=== PATIENT | female | born 1965 | race Caucasian/White ===

== ENCOUNTER → 2018-10-20 22:07 | Outpatient (CLI) | payer MEDICARE, OTHER, SELFPAY ==
[2018-10-20 22:29] LABS: Adenovirus F 40/41, stool Not Detected (NotDetected); Astrovirus Not Detected (NotDetected); Campylobacter Not Detected (NotDetected); Clostridium Difficile A/B, PCR Not Detected (NotDetected); Cryptosporidium Not Detected (NotDetected); Cyclospora Cayetanesis Not Detected (NotDetected); Entamoeba histolytica Not Detected (NotDetected); Enteroaggregative E coli Not Detected (NotDetected); Enteropathogenic E coli Not Detected (NotDetected); Enterotoxigenic E coli Not Detected (NotDetected); Giardia lamblia Not Detected (NotDetected); Norovirus Not Detected (NotDetected); Plesimonas Shigalloides, PCR Not Detected (NotDetected); Rotavirus A Not Detected (NotDetected); Salmonella, PCR Not Detected (NotDetected); Sapovirus Not Detected (NotDetected); Shiga-like toxin E coli Not Detected (NotDetected); Shigella Enterovasive E coli Not Detected (NotDetected); Vibrio Cholerae Not Detected (NotDetected); Vibrio, PCR Not Detected (NotDetected); Yersinia Entercolitica, PCR Not Detected (NotDetected)
== END ==
PROVIDERS: PCP Family Medicine; Visit Provider Family Medicine
DX: R19.7 Diarrhea, unspecified (principal)
CPT/HCPCS: 87506

== ENCOUNTER → 2019-03-24 12:31 | Outpatient (CLI) | payer MEDICARE, OTHER, SELFPAY ==
[2019-03-24 12:48] LABS: ABG Base Excess 4.7 mmol/L (-2.4-2.3); ABG HCO3 29.7 mmhg (22.0-26.0); ABG Oxygen Saturation 93 % (90-100); ABG PH 7.39 mmol/L (7.35-7.45); ABG TCO2 31.2 mmhg (23-27)
[2019-03-24 12:50] LABS: Allen's Test ACCEPTABLE; Oxygen ROOM AIR %; Source L. RADIAL
[2019-03-24 12:51] LABS: ABG PCO2 50.2 mmhg (35.0-45.0)
== END ==
PROVIDERS: PCP Family Medicine; Visit Provider Internal Medicine Pulmonary Disease
DX: R09.02 Hypoxemia (principal)
CPT/HCPCS: 82803

== ENCOUNTER 2019-10-01 11:52 | Emergency (ER) | payer MEDICARE, OTHER, SELFPAY ==
--- NOTE | 2019-10-01 11:33 | ECG_ITS ---
APPROVED REPORT Exam: Resting ECG HR:81 bpm ECG Measurements Heart Rate 81 AXES DE 114 P 33 QRSd 114 QRS -43 QT 448 T 234 QTc 520 <Conclusion> Normal sinus rhythm Left axis deviation Left ventricular hypertrophy with repolarization abnormality Prolonged QT Abnormal ECG Electronically signed by : Nelson Shafer, 10/02/2019 05:52:39
[2019-10-01 11:53] VITALS: BP 125/67; PULSE 73; RESP 28; TEMP 36.5; O2SAT 99; BMI 34.4
--- NOTE | 2019-10-01 11:54 | [facility].EDGENADL ---
ED Disposition Clinical Impression: Aortic valve disease, Chronic kidney disease with end stage renal failure on dialysis Chest pain Qualifiers: Chest pain type: precordial pain Qualified Code(s): R07.2 - Precordial pain Disposition: Xfer Short-Term Hosp Condition on Discharge: Fair Referrals: Provider,Referral, [Referring] - Forms: Transfer Record - ED - Critical Care Critical Care Time: No Attestation: On , the high probability of a clinically significant, sudden or life threatening deterioration of the following system(s) required my full and direct attention, intervention and personal management. The time I documented below is in addition to time spent performing reported procedures but includes the following listed in this critical care notation. Medical Decision Making - Medical Records Medical records reviewed: Yes: I reviewed the patient's medical records. - Theo Inquiry Pt receiving controlled substance: Yes Theo was queried for this patient: Yes Reference #:: [id number] Risks and benefits of using a controlled substance: were not discussed with pt by me Comment: 14 rxs. 10 oxycodone 5mg on 09/12/19 Vital Signs: 10/01/19 11:53 10/01/19 13:11 10/01/19 14:07 Temperature 97.7 F Temperature Source Oral Pulse Rate Pulse Rate [Left Radial] 73 91 H 85 Respiratory Rate 28 H 18 Blood Pressure Blood Pressure [Right Arm] 125/67 112/60 104/66 L Blood Pressure Mean [Right Arm] 86 77 78 Blood Pressure Source [Right Arm] Automatic Cuff Automatic Cuff Blood Pressure Position Blood Pressure Position [Right Arm] Sitting Sitting Supine 02 Sat by Pulse Oximetry 99 97 96 Oxygen Delivery Method Room Air Room Air Room Air 10/01/19 14:47 10/01/19 15:11 10/01/19 16:25 Temperature 98 F Temperature Source Oral Pulse Rate 78 Pulse Rate [Left Radial] 83 82 Respiratory Rate 18 Blood Pressure 105/68 L Blood Pressure [Right Arm] 101/56 L 107/55 L Blood Pressure Mean [Right Arm] 71 72 Blood Pressure Source [Right Arm] Automatic Cuff Automatic Cuff Blood Pressure Position Sitting Blood Pressure Position [Right Arm] Supine Sitting 02 Sat by Pulse Oximetry 94 L 94 L Oxygen Delivery Method Room Air Room Air Room Air - Lab Data Lab results reviewed: Yes: I reviewed the patient's lab results. Lab Results 10/01/19 12:40: WBC 5.0, RBC 4.25, Hgb 13.5, Hct 43.2, MCV 101.6 H, MCH 31.9 H, MCHC 31.4 L, RDW 15.1, Plt Count 205, MPV 9.0, Neut % (Auto) 64.4, Lymph % (Auto) 21.5, [place] % (Auto) 9.8 H, Eos % (Auto) 3.3, Baso % (Auto) 1.1, Neut # (Auto) 3.3, Lymph # (Auto) 1.1, [place] # (Auto) 0.5, Eos # (Auto) 0.2, Baso # (Auto) 0.1 10/01/19 12:40: Sodium 134 L, Potassium 4.1, Chloride 93 L, Carbon Dioxide 27, Anion Gap 18.1 H, BUN 21 H, Creatinine 4.70 H, Estimated Creat Clear 22, Estimated GFR 10 L*, Est GFR ( Amer) 12 L*, Glucose 254 H, Calcium 10.6 H, Total Bilirubin 0.8, Direct Bilirubin 0.6 H, Conjugated Bilirubin 0.0, Indirect Bilirubin 0.2, Unconjugated Bilirubin 0.2, AST 48 H, ALT 31, Alkaline Phosphatase 223 H, Troponin I 0.07 H, Total Protein 9.4 H, Albumin 5.2 H 10/01/19 15:15: Troponin I 0.07 H Result diagrams: 10/01/19 12:40 10/01/19 12:40 Orders (Tests/Meds): ED MEDICATIONS Discontinued Medications Generic Name Dose Route Start Last Admin Trade Name Freq PRN Reason Stop Dose Admin Aspirin 324 mg 10/01/19 12:15 10/01/19 13:09 Aspirin 81mg Chewable Tablet PO 10/01/19 12:16 324 mg ONCE ONE Administration Hydromorphone HCl 0.5 mg 10/01/19 13:46 10/01/19 13:54 Dilaudid 2mg/Ml Syringe IV 10/01/19 13:47 0.5 mg ONCE ONE Administration Ondansetron HCl 4 mg 10/01/19 13:46 10/01/19 13:54 Zofran 4mg/2ml Vial IV 10/01/19 13:47 4 mg ONCE ONE Administration - Radiology Data #1 Image(s): Chest Image Reviewed: Yes I reviewed the patient's radiology image, Yes I have reviewed radiologist's interpretation PROCEDURE: XR CHEST JESÚS
--- NOTE | 2019-10-01 11:59 | XR_ITS ---
PROCEDURE: XR CHEST PORTABLE CLINICAL HISTORY: cp Chest pain and weakness COMPARISON: [id number] XR chest portable from 07/15/2018 XR CHEST 2V from 05/21/2019 XR CHEST PORTABLE from 07/09/2019 FINDINGS: There is cardiomegaly without failure. Increased markings are present in the right lower lobe consistent with atelectasis or infiltrate. There is a vascular stent in the left axillary region degenerative changes of the shoulders and a screw in the left coronoid area. Coronary artery stent is also present. No acute bony abnormalities. IMPRESSION: Right lower lobe infiltrate Dictated by: Vernon Bower MD 10/01/2019 14:13 Electronically signed by Vernon Bower MD in [place] 10/01/2019 14:13
--- NOTE | 2019-10-01 12:06 | PC.NURSE ---
lab at bedside
[2019-10-01 12:47] LABS: Basophils # 0.1 K/mm3 (0-0.2); Basophils % 1.1 % (0.1-2.0); Eosinophils # 0.2 K/mm3 (0.0-0.4); Eosinophils % 3.3 % (0.1-12.0); Hematocrit 43.2 % (37.0-47.0); Hemoglobin 13.5 g/dL (12.2-16.2); Lymphocytes # 1.1 K/mm3 (0.7-4.5); Lymphocytes % 21.5 % (10-50); Mean Corpuscular HGB Conc 31.4 g/dL (31.8-35.4); Mean Corpuscular Hemoglobin 31.9 pg (27.0-31.2); Mean Corpuscular Volume 101.6 fl (81-99); Monocytes # 0.5 K/mm3 (0.1-1.0); Monocytes % 9.8 % (1.7-9.3); Neutrophils # 3.3 K/mm3 (1.8-7.8); Neutrophils % 64.4 % (37.0-80.0); Platelet Count 205 K/mm3 (142-424); Red Blood Count 4.25 M/mm3 (4.20-5.40); Red Cell Distribution Width 15.1 % (11.5-17.5)
[2019-10-01 12:50] LABS: Alanine Aminotransferase 31 U/L (12-78); Albumin Level 5.2 g/dl (3.5-5.0); Alkaline Phosphatase 223 U/L (38-126); Anion Gap 18.1 mEq/L (5-15); Bilirubin,Direct 0.6 mg/dl (0.0-0.4); Bilirubin,Indirect 0.2 mg/dL (0.0-0.9); Bilirubin,Total 0.8 mg/dl (0.2-1.3); Bilirubin,Unconjugated 0.2 mg/dL (0.0-1.1); Blood Urea Nitrogen 21 mg/dl (7-17); Calcium 10.6 mg/dl (8.4-10.2); Carbon Dioxide 27 mmol/L (22.0-30.0); Chloride 93 mmol/L (98-107); Creatinine Clearance Estimated 22 mL/min (50-200); Estimated Glomerular Filt Rate 10 ml/min (>60); GFR (African American) 12 ML/MIN (>60); Glucose 254 mg/dl (74-100); Sodium 134 mmol/L (136-145); Total Protein,Serum 9.4 g/dl (6.3-8.2)
[2019-10-01 12:55] LABS: Aspartate Amino Transferase 48 U/L (14-36); Potassium 4.1 mmoL/L (3.5-5.1)
[2019-10-01 13:02] LABS: Troponin I 0.07 ng/ml (0.00-0.034)
[2019-10-01 13:11] VITALS: BP 112/60; PULSE 91; RESP 18; O2SAT 97
--- NOTE | 2019-10-01 13:20 | PC.NURSE ---
paged [facility]
--- NOTE | 2019-10-01 13:38 | PC.NURSE ---
dr de leon returned call
--- NOTE | 2019-10-01 14:03 | PC.NURSE ---
[employer] [employer] speaking with [facility]
[2019-10-01 14:07] VITALS: BP 104/66; PULSE 85; O2SAT 96
--- NOTE | 2019-10-01 14:39 | PC.NURSE ---
[facility] aware of transfer. Due to high call volume they will be delayed on coming up for transport
--- NOTE | 2019-10-01 14:44 | PC.NURSE ---
report called to [facility].
[2019-10-01 14:47] VITALS: BP 101/56; PULSE 83; O2SAT 94
--- NOTE | 2019-10-01 15:03 | PC.NURSE ---
lab coming to draw repeat labs
[2019-10-01 15:11] VITALS: BP 107/55; PULSE 82; O2SAT 94
--- NOTE | 2019-10-01 15:11 | PC.NURSE ---
Lab at bedside doing repeat trop
[2019-10-01 16:04] LABS: Troponin I 0.07 ng/ml (0.00-0.034)
[2019-10-01 16:25] VITALS: BP 105/68; PULSE 78; RESP 18; TEMP 36.6; O2SAT 98
== END 2019-10-01 16:27 | disposition short-term general hospital (02) ==
PROVIDERS: Emergency Provider Emergency Medicine; PCP Family Medicine
DX: R07.2 Precordial pain (principal); I35.9 Nonrheumatic aortic valve disorder, unspecified; N18.6 End stage renal disease; Z95.5 Presence of coronary angioplasty implant and graft; Z88.5 Allergy status to narcotic agent; Z79.899 Other long term (current) drug therapy; Z90.09 Acquired absence of other part of head and neck
CPT/HCPCS: 36415; 71045; 80048; 80076; 84484; 85025; 93005; 96374; 96375; 99284; J2405

== ENCOUNTER 2020-01-15 17:00 | Outpatient (RCR) | payer MEDICARE, OTHER, SELFPAY | END 2020-01-15 18:00 | disposition home or self-care (01) | LOC: PT 17:00 | PROVIDERS: PCP Family Medicine | DX: M54.2 Cervicalgia (principal); M54.5 Low back pain; M25.532 Pain in left wrist; M25.531 Pain in right wrist; R53.1 Weakness | CPT/HCPCS: 97110; 97163 ==

== ENCOUNTER → 2020-03-09 13:08 | Outpatient (CLI) | payer MEDICARE, OTHER, SELFPAY | PROVIDERS: Visit Provider Specialist | DX: Z03.818 Encounter for observation for suspected exposure to other biological agents ruled out (principal) | CPT/HCPCS: U0003 ==

== ENCOUNTER → 2020-05-21 22:15 | Outpatient (CLI) | payer MEDICARE, OTHER, SELFPAY ==
--- NOTE | 2020-05-21 22:29 | XR_ITS ---
PROCEDURE: XR FOOT RT MIN 3V CLINICAL INDICATION: CELLULITIS OF RIGHT FOOT COMPARISON: No exams were available for comparison FINDINGS: Post bunionectomy changes are seen. There are 2 threaded screws at the bunionectomy site 1st metatarsal head. There is metallic bracket and screw proximal phalanx of the great toe. There are 2 small threaded screws in the metatarsal head and there is fusion of the PIP joint 2nd toe. There is mild diffuse soft tissue swelling of the forefoot. There is calcification of the posterior tibial artery, is the patient diabetic? IMPRESSION: Postsurgical changes as described Dictated by: Dr. Alex Vu MD 05/22/2020 10:04 Dr. Alex Vu MD in [place] 05/22/2020 10:04
== END ==
PROVIDERS: PCP Family Medicine; Visit Provider Family Medicine
DX: L03.115 Cellulitis of right lower limb (principal)
CPT/HCPCS: 73630

== ENCOUNTER 2020-05-22 16:02 | Emergency (ER) | payer MEDICARE, OTHER, SELFPAY ==
[2020-05-22 16:20] VITALS: BP 149/73; PULSE 78; RESP 20; TEMP 37; O2SAT 97; BMI 30.4
--- NOTE | 2020-05-22 16:28 | HMH.EDUTC ---
[facility] Disposition Clinical Impression: Exposure to COVID-19 virus Disposition: Home, Self-Care Condition on Discharge: Good Instructions: Preventing the Spread of Coronavirus Discharge Instructions Additional Instructions: Drink plenty of fluids. Take tylenol for pain or fever. Return if you begin to have difficulty breathing. Follow up with your regular doctor. GO TO THE ER FOR ANY WORSENING SYMPTOMS Referrals: Jyoti Seals [Primary Care Provider] - Time of Disposition: 16:51 Medical Decision Making - Medical Records Medical records reviewed: No: I reviewed the patient's medical records. - Theo Inquiry Pt receiving controlled substance: No Vital Signs: 05/22/20 16:20 05/22/20 16:41 Temperature 98.6 F 98.6 F Temperature Source Oral Pulse Rate 78 Pulse Rate [Right Brachial] 78 Respiratory Rate 20 20 Blood Pressure 149/73 H Blood Pressure [Right Arm] 149/73 H Blood Pressure Mean [Right Arm] 98 Blood Pressure Source [Right Arm] Automatic Cuff Blood Pressure Position [Right Arm] Sitting 02 Sat by Pulse Oximetry 97 Oxygen Delivery Method Room Air Orders (Tests/Meds): ORDERS Category Date Time Status Covid-19 Nasal PCR ([facility]) Routine Lab 05/22/20 16:30 Received [facility] HPI - General Stated complaint: COVID Test Time Seen by Provider: 05/22/20 16:28 - History of Present Illness Provider Complaint: She has a medical procedure scheduled for next Sunday. She needs to have a covid test today so she can be admitted to the hospital for her procedure next week. - Related Data Home Medications Medication Instructions Recorded Confirmed Duloxetine HCl 60 mg PO HS 09/24/17 07/09/19 Gabapentin [Gabapentin 100mg Cap] 100 mg PO BID 09/24/17 07/09/19 Loperamide HCl [Imodium 2 mg 2 mg PO NEEDED PRN 09/24/17 07/09/19 capsule] Ropinirole HCl 5 mg PO BID 09/24/17 07/09/19 Aspirin [Aspir 81] 81 mg PO DAILY 11/14/17 07/09/19 Clopidogrel Bisulfate [Plavix 75mg 75 mg PO DAILY 11/14/17 07/09/19 Tab] Isosorbide Mononitrate 10 mg PO DAILY 11/14/17 07/09/19 Amlodipine Besylate [Amlodipine 10 mg PO DAILY 01/11/18 07/09/19 10mg Tab] Atorvastatin Calcium [Atorvastatin 80 mg PO DAILY 01/11/18 07/09/19 80mg Tab] calcitrioL [Calcitriol] 0.5 mcg PO WEEKLY 01/11/18 07/09/19 L.acidoph,Paracasei, B.lactis 1 each PO DAILY 03/21/18 07/09/19 [Probiotic] Lipase/Protease/Amylase [Creon Dr 1 each PO DAILY 03/21/18 07/09/19 24,000 Units Capsule] Pantoprazole Sodium [Protonix 40mg 40 mg PO DAILY 03/21/18 07/09/19 tablet] Sevelamer HCl [Renagel] 800 mg PO QID 07/09/19 07/09/19 Allergies Allergy/AdvReac Type Severity Reaction Status Date / Time morphine Allergy Mild Rash Verified 03/21/18 19:47 propoxyphene Allergy Unknown I-HIVES Verified 11/14/17 23:25 [From DARVOCET-N 100] [facility] History - Hepatitis A Screen Attestation statement:: This patient has been screened for Hepatitis A risk factors. I have reviewed the patient's past medical history: Yes Medical History: Denies:: Cancer, Diabetes Mellitus Type 1, Diabetes Mellitus Type 2, MRSA Laterality Cases: Bilateral: Tonsillectomy Amputation: No Fractures: Yes (left wrist) - Social History Smoking Status: Never smoker Alcohol Intake: never Occupational Status: other Housing: apartment Household Members: other ROS Obtained: Yes All systems reviewed & no additional complaints - Constitutional Constitutional: Reports system reviewed and no additional complaints, except as docu - Eyes Eyes: Reports system reviewed and no additional complaints, except as docu - ENT Ears, Nose, Mouth, and Throat: Reports system reviewed and no additional complaints, except as docu - Cardiovascular Cardiovascular: Reports system reviewed and no additional complaints, except as docu - Respiratory Respiratory: Yes system reviewed and no additional complaints, except as docu - Gastrointestinal Gastroin
[2020-05-22 16:41] VITALS: BP 149/73; PULSE 78; RESP 20; TEMP 37; O2SAT 97
== END 2020-05-22 16:50 | disposition home or self-care (01) ==
PROVIDERS: Emergency Provider Nurse Practitioner Family; PCP Family Medicine
DX: Z20.828 Contact with and (suspected) exposure to other viral communicable diseases (principal)
CPT/HCPCS: 99202; G0463; U0003

== ENCOUNTER 2020-06-08 15:00 | Outpatient (RCR) | payer MEDICARE, OTHER, SELFPAY | END 2020-06-08 15:05 | disposition home or self-care (01) | LOC: PT 15:00 | PROVIDERS: PCP Family Medicine; Visit Provider Family Medicine | DX: R53.1 Weakness (principal) | CPT/HCPCS: 97110; 97113; 97163 ==

== ENCOUNTER → 2020-08-19 18:22 | Outpatient (CLI) | payer MEDICARE, OTHER, SELFPAY ==
[2020-08-19 19:38] LABS: Erythrocyte Sedimentation Rate 66 mm/hr (0-30)
[2020-08-19 20:08] LABS: Uric Acid 6.2 mg/dl (2.5-6.2)
[2020-08-19 20:13] LABS: C-Reactive Protein 3.9 mg/L (0-4)
[2020-08-21 19:13] LABS: RA Latex Turbid. 14.1 IU/mL (0.0-13.9)
[2020-08-23 23:56] LABS: Anti-Cyclic Citrullinated Pept 10 units (0-19)
[2020-08-24 13:14] LABS: Antinuclear Antibodies, IFA Negative (.)
== END ==
PROVIDERS: Visit Provider Orthopaedic Surgery Hand Surgery
DX: R27.9 Unspecified lack of coordination (principal)
CPT/HCPCS: 36415; 84550; 85651; 86038; 86140; 86200; 86431

== ENCOUNTER 2020-09-07 13:00 | Outpatient (RCR) | payer MEDICARE, OTHER, SELFPAY | END 2020-09-07 13:05 | disposition home or self-care (01) | LOC: PT 13:00 | PROVIDERS: PCP Family Medicine; Visit Provider Family Medicine | DX: R53.1 Weakness (principal) | CPT/HCPCS: 97163 ==

== ENCOUNTER 2020-10-02 18:52 | Emergency (ER) | payer MEDICARE, OTHER, SELFPAY ==
[2020-10-02 19:37] VITALS: BP 132/62; PULSE 68; RESP 18; TEMP 36.8; O2SAT 98; BMI 32.6
--- NOTE | 2020-10-02 19:39 | HMH.EDUTC ---
[facility] Disposition Clinical Impression: Encounter for laboratory testing for COVID-19 virus Disposition: Home, Self-Care Condition on Discharge: Good Instructions: DI for COVID-19 (Suspected or Confirmed ), Preventing the Spread of Coronavirus Discharge Instructions Additional Instructions: You were tested for today for COVID19 your test result should be back in the next 24-48 hours, you may call to the [facility] to see if your test results are back in the next 48 hours [phone] [facility] hours are 9am-9pm You was given a handout with instructions for Self Quarantine and Self isolation for while you wait on test results and what to do if they are positive If you are positive the Health Dept will be contacting you also Referrals: Jyoti Seals [Primary Care Provider] - As needed Time of Disposition: 19:40 Medical Decision Making - Theo Inquiry Pt receiving controlled substance: No Theo was queried for this patient: No Vital Signs: 10/02/20 19:37 Temperature 98.3 F Temperature Source Oral Pulse Rate [Right] 68 Respiratory Rate 18 Blood Pressure [Right Arm] 132/62 Blood Pressure Mean [Right Arm] 85 02 Sat by Pulse Oximetry 98 Oxygen Delivery Method Room Air [facility] HPI - General Stated complaint: COVID TEST Time Seen by Provider: 10/02/20 19:35 Mode of Arrival: Ambulatory Source of Information: Patient Limitations: No Limitations Description of Symptoms (Recalled from Triage Doc. by RN): pt needs covid test for a procedure HEENT Symptoms (Recalled from RN notes): No Resp Symptoms (Recalled from RN notes): No Skin Symptoms (Recalled from RN notes): No MS Symptoms (Recalled from RN notes): No Functional Status (Recalled from RN notes): na - History of Present Illness Provider Complaint: Patient state that she is having surgery next week and they wanted her to have a COVID test prior to surgery so she came in today to get the test done Denies symptoms and denies known exposure - Related Data Home Medications Medication Instructions Recorded Confirmed Duloxetine HCl 60 mg PO HS 09/24/17 07/09/19 Gabapentin [Gabapentin 100mg Cap] 100 mg PO BID 09/24/17 07/09/19 Loperamide HCl [Imodium 2 mg 2 mg PO NEEDED PRN 09/24/17 07/09/19 capsule] Ropinirole HCl 5 mg PO BID 09/24/17 07/09/19 Aspirin [Aspir 81] 81 mg PO DAILY 11/14/17 07/09/19 Clopidogrel Bisulfate [Plavix 75mg 75 mg PO DAILY 11/14/17 07/09/19 Tab] Isosorbide Mononitrate 10 mg PO DAILY 11/14/17 07/09/19 Amlodipine Besylate [Amlodipine 10 mg PO DAILY 01/11/18 07/09/19 10mg Tab] Atorvastatin Calcium [Atorvastatin 80 mg PO DAILY 01/11/18 07/09/19 80mg Tab] calcitrioL [Calcitriol] 0.5 mcg PO WEEKLY 01/11/18 07/09/19 L.acidoph,Paracasei, B.lactis 1 each PO DAILY 03/21/18 07/09/19 [Probiotic] Lipase/Protease/Amylase [Creon Dr 1 each PO DAILY 03/21/18 07/09/19 24,000 Units Capsule] Pantoprazole Sodium [Protonix 40mg 40 mg PO DAILY 03/21/18 07/09/19 tablet] Sevelamer HCl [Renagel] 800 mg PO QID 07/09/19 07/09/19 Allergies Allergy/AdvReac Type Severity Reaction Status Date / Time morphine Allergy Mild Rash Verified 10/02/20 19:39 propoxyphene Allergy Unknown I-HIVES Verified 10/02/20 19:39 [From [facility]-N 100] - Worker's Comp Is this a Worker's Comp case?: No [facility] History - Hepatitis A Screen Drug use history?: No High risk sexual behaviors?: No History of sexually transmitted infection?: No Currently employed?: No Childcare worker?: No Do you have indoor plumbing?: Yes Do you have electricity?: Yes Attestation statement:: This patient has been screened for Hepatitis A risk factors. I have reviewed the patient's past medical history: Yes Medical History: Denies:: Cancer, Diabetes Mellitus Type 1, Diabetes Mellitus Type 2, MRSA Laterality Cases: Bilateral: Tonsillectomy Amputation: No Fractures: Yes (left wrist) - Social History Smoking Status: Never smoker Alcohol Intake: never Occupational Status:
[2020-10-02 21:00] VITALS: BP 129/67; PULSE 71; RESP 19; TEMP 37
== END 2020-10-02 21:00 | disposition home or self-care (01) ==
PROVIDERS: Emergency Provider Nurse Practitioner; PCP Family Medicine
DX: Z11.52 Encounter for screening for COVID-19 (principal)
CPT/HCPCS: 99202; G0463; U0003